=== PATIENT | male | born 1995 | race Two or more races ===

== ENCOUNTER 2017-04-09 18:33 | Emergency (ER) | payer SELFPAY ==
[~2017-04-09] VITALS: Ht 172.7 cm; Wt 65.0 kg
[2017-04-09] MEDS ORDERED: ZIPRASIDONE MESYLATE 20MG/VIAL IM ONE (19:45)
[2017-04-09 21:43] LABS: BASOPHILS % 0.4 % (0.0-2.0); EOSINOPHILS % 0.2 % (0.0-5.0); HEMATOCRIT. 40.7 % (42.0-52.0); HEMOGLOBIN. 13.8 g/dL (14.0-18.0); LYMPHOCYTES % 11.5 % (20.0-50.0); MEAN CORPUSCULAR HEMOGLOBIN 30.7 pg (28.0-32.0); MEAN CORPUSCULAR VOLUME 90.6 fL (80.0-94.0); MEAN PLATELET VOLUME 8.1 fl (7.4-10.4); MONOCYTES % 6.2 % (2.0-8.0); NEUTROPHILS % 81.7 % (40.0-76.0); PLATELET 214 x1000/uL (130-400); RED BLOOD CELL COUNT 4.49 mill/uL (4.7-6.1); RED CELL DISTRIBUTION WIDTH 12.9 % (11.6-14.6)
[2017-04-09 21:57] LABS: CARBON DIOXIDE 29 mEq/L (21-32); CHLORIDE 108 mEq/L (98-107); ETHANOL BLOOD 66 mg/dL
[2017-04-09 23:37] LABS: CLARITY URINE CLEAR (CLEAR); COLOR URINE YELLOW (YELLOW); GLUCOSE URINE NEGATIVE (NEGATIVE); KETONES URINE NEGATIVE (NEGATIVE); LEUKOCYTE ESTERASE URINE NEGATIVE (NEGATIVE); NITRITE URINE NEGATIVE (NEGATIVE); OCCULT BLOOD URINE NEGATIVE (NEGATIVE); PH URINE 6.5 (4.5-8.0); PROTEIN URINE NEGATIVE (NEGATIVE); SPECIFIC GRAVITY URINE 1.013 (1.005-1.030); UROBILINOGEN URINE 0.2 E.U./dL (0.2-1.0)
[2017-04-10 00:20] LABS: *AMPHETAMINES SCREEN URINE NEGATIVE (NEGATIVE); *BARBITURATES SCREEN URINE NEGATIVE (NEGATIVE); *BENZODIAZEPINES SCREEN URINE PRESUMTIVE POSITIVE (NEGATIVE); *COCAINE SCREEN URINE NEGATIVE (NEGATIVE); CANNABINOID URINE SCREEN PRESUMTIVE POSITIVE (NEGATIVE); METHADONE URINE SCREEN NEGATIVE (NEGATIVE); OPIATES URINE SCREEN NEGATIVE (NEGATIVE); PHENCYCLIDINE URINE SCREEN NEGATIVE (NEGATIVE)
[2017-04-10 00:49] VITALS: BP 126/68
== END 2017-04-10 00:51 | disposition home or self-care (01) ==
LOC: ER 18:59
DX: F91.9 Conduct disorder, unspecified (principal); F17.200 Nicotine dependence, unspecified, uncomplicated; Z59.0 Homelessness
CPT/HCPCS: 36415; 70450; 70486; 72125; 80053; 80305; 81003; 85025; 99285; G0482

== ENCOUNTER 2021-03-09 01:37 | Emergency (ER) | payer MEDICAID ==
[~2021-03-09] VITALS: Ht 175.3 cm; Wt 73.0 kg
[2021-03-09] MEDS ORDERED: ACETAMINOPHEN 325MG TABLET PO ONE (02:45)
[2021-03-09] MEDS ORDERED: IBUPROFEN 600MG TABLET PO ONE (02:45)
[2021-03-09 02:49] VITALS: BP 152/80
[2021-03-09] MEDS ORDERED: AMOX-424 MT (02:55)
[2021-03-09] MEDS ORDERED: IBUP-2028 MT (02:55)
[2021-03-09] MEDS ORDERED: ACET-2708 MT (02:55)
== END 2021-03-09 03:16 | disposition home or self-care (01) ==
LOC: ER 01:37
DX: S02.5XXA Fracture of tooth (traumatic), initial encounter for closed fracture (principal); K08.89 Other specified disorders of teeth and supporting structures; F17.200 Nicotine dependence, unspecified, uncomplicated; Z79.899 Other long term (current) drug therapy; X58.XXXA Exposure to other specified factors, initial encounter; Y93.89 Activity, other specified; Y92.89 Other specified places as the place of occurrence of the external cause; Y99.8 Other external cause status
CPT/HCPCS: 99283

== ENCOUNTER 2022-11-07 03:00 | Emergency (ER) | payer MEDICAID ==
[~2022-11-07] VITALS: Ht 175.3 cm; Wt 90.0 kg
[~2022-11-07 03:00] MED LIST: ACET-2708 MT; AMOX-424 MT; IBUP-2028 MT
[2022-11-07 03:05] VITALS: BP 160/79
== END 2022-11-07 04:00 | disposition home or self-care (01) ==
LOC: ER 03:00
DX: H10.213 Acute toxic conjunctivitis, bilateral (principal)
CPT/HCPCS: 99283